=== PATIENT | male | born 1950 | race Caucasian/White ===

== ENCOUNTER 2025-02-16 14:20 | Emergency (ER) | payer OTHER, SELFPAY ==
--- OUTSIDE RECORDS SUMMARY | 2025-02-16 14:36 | XMS_ITS | Encounter Summary ---
Author Organization [facility] Care Address [address] [place] [address] Phone Care Team Providers Care Box Sealing Inspector Name Role Phone Scot Fontanez Primary Care Provider Unavail able Janay Fernández Unavailable [phone] Scot Fontanez Primary Care Provider Encounter Details Date Type Department Care Team (Late st Contact Info) Description 11/26/2022 [facility] Neurology Movement [address] [place] [address] Nataliya Juares MD [address] [place], [place] [id number] Social History Tobacco Use Types Packs/Day Years Used Date Smoking Tobacco: Never Smokeless Tobacco: Never Alcohol Use Standard Drinks/Week Comments Yes 7 (1 standard drink = 0.6 oz pure alcohol) One beer or wine or liquor per day Sex and Gender Information Value Date Recorded Sex Assigned at Not on file Legal Sex Male 2:46 AM CDT Gender Identity Not on file Sexual Orientation Not on file documented as of this encounter Miscellaneous Notes * Telephone Encounter - Esme Sahu RN - 11/26/2022 11:29 AM CDT Boo called and is wanting Dr. Juares to write a prescription for Topiramate. documented in this encounter Plan of Treatment Scheduled Procedures Name Priority Associated Diagnoses Date/Ti me ARTHROPLASTY HIP Primary osteoarthritis of right hip documented as of this encounter Visit Diagnoses Not on filedocumented in this encounter Care Teams Box Sealing Inspector Relationship Specialty Start Date End Date Scot Fontanez PCP - General Family Practice 09/14/19 03/29/24 Scot Fontanez [address] [place] [address] PCP - General Family Practice 03/30/24 Janay Fernández [address] [place] [address] Grey Roll Man - Primary Nurse Practitioner 09/20/19 documented as of this encounter
--- OUTSIDE RECORDS SUMMARY | 2025-02-16 14:36 | XMS_ITS | Encounter Summary ---
Author Organization [facility] Care Address [address] [place] [address] Phone Care Team Providers Care Supply Chain Logistics Manager Name Role Phone Scot Fontanez Primary Care Provider Unavail able Janay Fernández Unavailable [phone] Scot Fontanez Primary Care Provider [phone] Reason for Visit * Reason Comments Medication Refill Encounter Details Date Type Department Care Team (Late st Contact Info) Description 10/01/[address] [facility] - [address] [place] [address] Dipesh Pena MD [address] [place], [place] [id number] Social History Tobacco Use Types Packs/Day Years [...] encounter Miscellaneous Notes * Telephone Encounter - Marija Crum RN - 10/04/2021 8:12 AM CST Patient called asking why we have rejected his medications being filled. I let the patient know that he has not been seen in our clinic since 09/30 so NO refills will be made unless his is scheduled to be seen. Pt states he is seen locally only when he has problems and asks how is he to get his medication. I let patient know he would need to reach out to the person he sees locally or his PCP to refill his prescriptions. Patient states understanding. RUMENTATION DESIGNER * Telephone Encounter - Charlene Mckinnon, RN - 10/01/2021 8:02 PM CST May schedule with Trudi if needs to be seen. Will follow locally doing well since starting the colestipol. 01/12/21 [facility] RE ADVISED 05/18/2020 NO MORE REFILLS UNLESS SCHEDULES TO BE SEEN RUMENTATION DESIGNER documented in this encounter Plan of Treatment Scheduled Procedures Name Priority Associated Diagnoses Date/Ti me ARTHROPLASTY HIP Primary osteoarthritis of right hip documented as of this encounter Visit Diagnoses Diagnosis Lymphocytic colitis Other and unspecified noninfectious gastroenteritis and colitis Diarrhea, unspecified type documented in this encounter Care Teams Supply Chain Logistics Manager Relationship Specialty Start Date End Date Scot Fontanez PCP - General Family Practice 09/14/19 03/29/24 Scot Fontanez [address] [place] [address] PCP - General Family Practice 03/30/24 Janay Fernández [address] [place] [address] Kitchen Lead - Primary Nurse Practitioner 09/20/19 documented as of this encounter
--- OUTSIDE RECORDS SUMMARY | 2025-02-16 14:37 | XMS_ITS | Clinical Summary ---
Author Organization [facility] Address [address] [place] [id number] Care Team Providers Care Warehouse Shipping Receiving Clerk Name Role Phone Provider, Non-[facility] Primary Care Provider Un available Allergies Active Allergy Reactions Criticality Noted Date Comments Erythromycin GI Upset 04/09/2017 Medications metoprolol succinate (TOPROL XL) 25 mg Sustained-Rele ase tablet Take 25 mg by mouth at bedtime. 0 5 Active atorvastatin (LIPITOR) 20 mg tablet Take 20 mg by mouth at bedtime. 0 5 Active hydrochlorothi azide (HCTZ) 25 mg tablet Take 12.5 mg by mouth once daily. 0 5 Active aspirin (ECOTRIN) 81 mg enteric coated tablet Take 81 mg by mouth at bedtime. Active sennosides-doc usate, 8.6-50 mg, (SENOKOT S) 8.6-50 mg tabletIndicati ons:Constipati on due to pain medication Take 2 tablets by mouth 2 times daily. Hold for loose stools 40 tablet 04/11/2017 1:04 PM CDT 7 Active methocarbamol (ROBAXIN) 500 mg tabletIndicati ons:Spondyloli sthesis at L4-L5 level Take 1 tablet by mouth 4 times daily. 60 tablet 04/12/2017 1:24 PM CDT 7 Active oxyCODONE-acet aminophen, 5-325 mg, (PERCOCET) 5-325 mg per tabletIndicati ons:Postoperat prosper back pain Take 1-2 tablets by mouth every 4 hours if needed for Pain Max acetaminophen dose: 4000mg in 24 hrs. 60 tablet 04/12/2017 1:24 PM CDT 7 Active Active Problems Problem Noted Date Diagnosed Date L45 Lumbar foraminal stenosis 04/09/2017 Spondylolisthesis at L4-L5 level 04/09/2017 Paroxysmal atrial fibrillation 06/09/2015 Overview (06/09/2015): -06/08/2015 s/p complex RF ablation Hypertension 06/09/2015 Dyslipidemia 06/09/2015 Social History Tobacco Use Types Packs/Day Years Used Date Smoking Tobacco: Never Smokeless Tobacco: Never Alcohol Use Standard Drinks/Week Comments Yes 0 (1 standard drink = 0.6 oz pur e alcohol) 1/day Sex and Gender Information Value Date Recorded Sex Assigned at Not on file Legal Sex Male 3:04 PM CDT Gender Identity Not on file Sexual Orientation Not on file Obstetrics History Last Filed Vital Signs Vital Sign Reading Time Taken Comments Blood Pressure 126/84 04/12/2017 4:00 PM CDT Pulse 126 04/12/2017 4:00 PM CDT Temperature 37.2 C (99 F) 04/12/2017 4:00 PM CDT Respiratory Rate 16 04/12/2017 4:00 PM CDT Oxygen Saturation 92% 04/12/2017 4:00 PM CDT Inhaled Oxygen Concentration - - Weight 96.7 kg (213 lb 3 oz) 04/10/2017 9:13 AM CDT Height 172.7 cm (5' 8) 04/10/2017 9:13 AM CDT Body Mass Index 32.41 04/10/2017 9:13 AM CDT Plan of Treatment Health Maintenance Due Date Last Done Comments Tetanus booster 1962 Depression screening for age 12+ 1963 Hepatitis C screening for ag e 18-79 1969 Colonoscopy through age 75 1996 Lipids for age 45-75 1996 Pneumococcal series for age 50+ (1 of 1 - PCV) 2001 Zoster (shingles) series for age 50+ (1 of 2) 2001 BMI (ht and wt on same day) for age 18+ 02/27/2018 02/27/2017 COVID-19 vaccine series (1 - 2023- season) 2024 Influenza Vaccine (#1) 2025 RSV vaccine for adults or (1 - 1-dose 75+ series) 2026 Hepatitis B series for 19+ Aged Out N o longer eligible based on patient's age to complete this topic Medical Devices Implanted Type Area Mold Runner Device Identifier Shelf Expiration Date Model / Serial / Lot [id number] 1-4mm 30cc Medtronic Chips Canclls Freeze Dried Implanted:Qty: 1 on 04/10/2017 by Bryn Barrera MD at [facility] Explanted:at [facility] (Quantity not on file) Left: Spine Medtronic Spine/Ortho 12/01/2021 [id number] / [id number] / Spacer Lmbr [id number] Capstone Tlif Titnm Coating - [id number] Implanted:Qty: 1 on 04/10/2017 by Bryn Barrera MD at [facility] Left: Spine Medtronic Spine/Ortho 10/23/2024 [id number] / / [id number] Set Screw Lmbr Tsrh 3dx - [id number] Implanted:Qty: 4 on 04/10/2017 by Bryn Barrera MD at [facility] Left: Spine Medtronic Spine/Ortho [id number]# / / Cnnctr Lmbr Sm Tsrh 3dx Offsettitnm - [id number] Implanted:Qty: 4 on 04/10/2017 by Bryn Barrera MD at [facility] Left: Spine Medtronic Spine/Ortho [id number]# / / Screw Lmbr Post 6.5x45mm Tsrh 3dx Og Thin Va - [id number] Implanted:Qty: 2 on 04/10/2017 by Bryn Barrera MD at [facility] Left: Spine Medtronic Spine/Ortho [id number] / / Screw Lmbr Post 7.5x40mm Tsrh 3dx Og Thin Va - [id number] Implanted:Qty: 2 on 04/10/2017 by Bryn Barrera MD at [facility] Left: Spine Medtronic Spine/Ortho [id number] / / Aly Lmbr 35x5.5mm Tsrh 3d Cvd Titnm - [id number] Implanted:Qty: 2 on 04/10/2017 by Bryn Barrera MD at [facility] Left: Spine Medtronic Spine/Ortho [id number] / / Insurance MEDICARE PART A HB ONLY MEDICARE PART B HB ONLY MEDICARE PB ONLY Advance Directives * Full Code (Latest Code Status on File) Date Activated Date Inactivated Comments 04/10/2017 2:30 PM 04/12/2017 8:56 PM * Full Code Date Activated Date Inactivated Comments 04/10/2017 7:29 AM 04/10/2017 2:30 PM * Full Code Date Activated Date Inactivated Comments 06/08/2015 5:58 AM 06/09/2015 12:36 PM Care Teams Warehouse Shipping Receiving Clerk Relationship Specialty Start Date End Date Provider, Non-[facility]ian . PCP - General 04/08/17
--- OUTSIDE RECORDS SUMMARY | 2025-02-16 14:37 | XMS_ITS | Clinical Summary ---
Author Organization [facility] Care Address [address] [place] [address] Phone Care Team Providers Care Diffusion Furnace Operator Name Role Phone Janay Fernández Unavailable [phone] Scot Fontanez Primary Care Provider [phone] Source Comments This disclosure is being made pursuant to the Care Everywhere program,applicable federal and state laws, and may not contain all informationavailable regarding this patient.[facility] and [facility] Practices Allergies Active Allergy Reactions Criticality Noted Date Comments Erythromycin Nausea & Vomiting 07/22/2023 Medications atorvastatin 20 mg tablet Take 1 tablet (20 mg total) by mouth every evening. 0 Active XARELTO 20 mg tablet Take 1 tablet (20 mg total) by mouth every evening with dinner. 0 Active loperamide 2 mg capsuleIndicatio ns:Lymphocytic colitis,Diarrhea , unspecified type Take 1-2 capsules (2-4 mg total) by mouth 4 times daily as needed for diarrhea. 240 capsule 2 0 Active COLESTIPOL 1 gram tabletIndication s:Lymphocytic colitis,Diarrhea , unspecified type TAKE TWO TABLETS BY MOUTH AT BEDTIME 60 tablet 0 Active NADOLOL-BENDROFL UMETHIAZIDE PO 3 Active nadolol 40 mg tablet Take 1 tablet (40 mg total) by mouth daily. 4 Active Active Problems Problem Noted Date Diagnosed Date Chronic right hip pain 04/02/2024 Primary osteoarthritis of right hip 04/02/2024 Lymphocytic colitis 09/20/2019 Lumbar foraminal stenosis 04/09/2017 Spondylolisthesis at L4-L5 level 04/09/2017 Dyslipidemia 06/09/2015 Hypertension 06/09/2015 Paroxysmal atrial fibrillation 06/09/2015 Overview (04/02/2024): -06/08/2015 s/p complex RF ablation Immunizations Immunization Administration Dates Next Due COVID-19, mRNA (MODERNA) 100mcg/0.5mL ,06/20/2021,11/15/2020,2020 COVID-19, mRNA, BIVALENT 12+ yo (PFIZER) 30mcg/0.3mL 05/22/2022 COVID-19, mRNA, PF 30mcg/0.3 mL (COMIRNATY) 05/18/2024 Hepatitis A, adult 07/29/2007,2006 Influenza 2014, 3,05/18/2012,2009,06/01/2009,06/22/2007 Influenza, PF 05/27/2015 Influenza, Quadrivalent Adjuvanted PF 05/22/2022 ,05/28/2021,05/15/2020 Influenza, high dose 05/27/2018,05/09/2017 Influenza, quadrivalent 05/18/2019 Influenza, quadrivalent PF 05/15/2016 Influenza, trivalent adjuvanted 05/18/2024 Influenza, whole 07/25/2000 Pneumococcal Conjugate, PCV1 3 (Prevnar 13) 02/23/2018 Pneumococcal Polysaccharide, PPSV23 (Pneumovax 23) 04/15/2019 Polio/IPV 2006 Td, adult unspecified 09/14/2001 Tdap 01/27/2012 Typhoid, unspecified 10/14/2014,2006 Yellow Fever 2006 Zoster, live (Zostavax) 09/06/2011 Zoster, recombinant (Shingrix) 01/11/2019,2018 Family History Medical History Relation Comments High Cholesterol Brother 1 Hypertension Brother 1 Arthritis-osteo Brother 2 Depression Daughter 1 Irritable Bowel Syndrome Daughter 1 Depression Daughter 3 High Cholesterol Father Hypertension Father Spinal stenosis Father Heart Disease Maternal Grandfather Leukemia Maternal Grandfather Heart Disease Maternal Grandmother Breast Cancer Mother Heart Disease Mother Stroke Mother Valvular heart disease Mother Celiac Disease Other Heart Disease Paternal Grandfather Heart Disease Paternal Grandmother Colon Cancer Neg Hx Relation Status Comments Brother 1 Alive Brother 2 Alive Daughter 1 Alive Daughter 2 Alive Daughter 3 Father Maternal Grandfather Maternal Grandmother Mother Other Alive Paternal Grandfather Paternal Grandmother Social History Tobacco Use Types Packs/Day Years Used Date Smoking Tobacco: Never Smokeless Tobacco: Never Tobacco Cessation:Counseling Given: No Alcohol Use Standard Drinks/Week Comments Yes 7 (1 standard drink = 0.6 oz pure alcohol) One beer or wine or liquor per day Abuse Risk Answer Date Recorded Are you in an UNsafe relationship? Not on file 10/19/2023 Does your partner/boyfriend or girlfriend hit, kick, hurt, or threaten you? Not on file 10/19/2023 Have you suffered any injury as a result of abuse in the past year? Not on file 10/19/2023 Does your partner/boyfriend or girlfriend ever try to control you by threatening you or your family? Not on file 024 Are you currently being forc ed to engage in sexual activity? Not on file 10/19/2023 Are you being abused or thre atened in your work or home environment? Not on file 10/19/2023 Are you being forced to work? Not on file Is the patient a d ependent adult ? Does not apply 10/19/2023 Do you feel unsafe at home? Not on file 10/09 Has anyone tried to force yo u to sign papers or to use your money against your will? Not on file 10/19/2023 Sex and Gender Information Value Date Recorded Sex Assigned at Not on file Legal Sex Male 2:46 AM CDT Gender Identity Not on file Sexual Orientation Not on file Last Filed Vital Signs Vital Sign Reading Time Taken Comments Blood Pressure 181/79 07/22/2023 8:14 AM STOCK HANGER Pulse 55 07/22/2023 8:14 AM STOCK HANGER Temperature 36.9 C (98.4 F) 09/21/2019 8:38 AM STOCK HANGER Respiratory Rate - - Oxygen Saturation 98% 07/22/2023 8:14 AM STOCK HANGER Inhaled Oxygen Concentration - - Weight 95.9 kg (211 lb 6.7 oz) 03/30/2024 8:22 A M CDT Height 176 cm (5' 9.29) 03/30/2024 8:22 AM CDT Body Mass Index 30.96 03/30/2024 8:22 AM CDT Plan of Treatment Scheduled Procedures Name Priority Associated Diagnoses Date/Ti me ARTHROPLASTY HIP Primary osteoarthritis of right hip Health Maintenance Due Date Last Done Comments Annual Physical Visit 1954 HCV Screening 1969 Lipid Disorder Screening 1972 CT Colonography 05/25/1996 Colonoscopy 05/25/1996 Colorectal Screening 05/25/1996 FIT-DNA 05/25/1996 FIT 05/25/1996 FOBT 05/25/1996 Flex Sigmoidoscopy 05/25/1996 Tetanus Diphtheria Pertussis (2 - Td or Tdap) 01/26/2022 01/27/2012, 09/14/2001 [id number] Vaccine ( season) 2024 05/18/2024, 05/22/2022, 11/17/2021, Additional history exists Influenza Vaccine: Seasonal (#1) 04/11/2025 05/18/2024, 05/22/2022, 05/28/2021, Additional history exists Yellow Fever Vaccine Discontinued 2006 Typhoid Vaccine Discontinued 10/14/2014, 2006 Zoster Vaccine Completed 01/11/2019, 04/2019, 09/06/2011 Pneumococcal Vaccine Completed 04/15/2019, 02/24/20 18 Insurance [facility] MEDICARE ADVANTAGE [facility] MEDICARE ADVANTAGE Care Teams Diffusion Furnace Operator Relationship Specialty Start Date End Date Scot Fontanez [address] [place] [address] PCP - General Family Practice 03/30/24 Janay Fernández [address] [place] [address] Automatic Lathe Tender - Primary Nurse Practitioner 09/20/19
--- OUTSIDE RECORDS SUMMARY | 2025-02-16 14:37 | XMS_ITS | Referral Summary ---
Author Organization [facility] Care Address [address] [place] [address] Phone Care Team Providers Care Rehab Liaison Name Role Phone Janay Fernández Unavailable [phone] Scot Fontanez Primary Care Provider [phone] Source Comments This disclosure is being made pursuant to the Care Everywhere program,applicable federal and state laws, and may not contain all informationavailable regarding this patient.[facility] and [facility] Practices Allergies Active Allergy Reactions Criticality [...] live (Zostavax) 09/06/2011 Zoster, recombinant (Shingrix) 01/11/2019,2018 Social History Tobacco Use Types Packs/Day Years [...] Comments Blood Pressure 181/79 07/22/2023 8:14 AM SACK MAKER Pulse 55 07/22/2023 8:14 AM SACK MAKER Temperature 36.9 C (98.4 F) 09/21/2019 8:38 AM SACK MAKER Respiratory Rate - - Oxygen Saturation 98% 07/22/2023 8:14 AM SACK MAKER Inhaled Oxygen Concentration - - Weight 95.9 kg (211 lb 6.7 oz) 03/30/2024 8:22 A M CDT Height 176 cm (5' 9.29) 03/30/2024 8:22 AM CDT Body Mass Index 30.96 03/30/2024 8:22 AM CDT Plan of Treatment Scheduled Procedures Name Priority Associated Diagnoses Date/Ti me ARTHROPLASTY HIP Primary osteoarthritis of right hip Insurance [facility] MEDICARE ADVANTAGE [facility] MEDICARE ADVANTAGE Care Teams Rehab Liaison Relationship Specialty Start Date End Date Scot Fontanez [address] [place] [address] PCP - General Family Practice 03/30/24 Janay Fernández [address] [place] [address] Foot Miter Operator - Primary Nurse Practitioner 09/20/19
== END 2025-02-16 14:41 | disposition left against medical advice (07) ==
DX: Z53.21 Procedure and treatment not carried out due to patient leaving prior to being seen by health care provider (principal)